=== PATIENT | female | born 1950 | race Caucasian/White ===

== ENCOUNTER → 2016-07-23 | Outpatient (CLI) | payer MEDICARE, OTHER ==
[2016-07-23 14:28] VITALS: BP 128/75; PULSE 75; TEMP 98.2; BMI 37.0
--- NOTE | 2016-07-23 15:08 | P.HPBAR ---
Bariatric H&P - History & Physicial H&P Date: 07/23/16 History & Physicial: Visit/CC: gastric band fill Patient initial contact: Initial weight: 117.934 kg Initial weight in pounds: 260.00 Height: 5 ft 5 in Initial BMI: 43.2 Last weight: Current weight: 100.924 kg Current weight in pounds: 222.50 Current BMI: 37.0 [place] body weight (based on NIH guidelines): 56.699 kg Excess body weight loss: 27.7% The patient is a 65 year-old F who presents for Bariatric Assessment. The patient is hungry and is requesting a fill of her LAP-BAND. Review of Systems Constitutional: Reports as per HPI Past Medical History Past Medical History: Diabetes Mellitus, Hyperlipidemia, Hypertension, Osteoarthritis (OA), Thyroid Disorder Additional Past Medical History / Comment(s): type 2 DM, hypothyroidism. History of Any Multi-Drug Resistant Organisms: None Reported Past Surgical History: Appendectomy, Bariatric Surgery, Orthopedic Surgery Additional Past Surgical History / Comment(s): lap band placed 2007 (here), Left knee "cleaned out" , bilateral carpal tunnel, Right rotator cuff, sinus surgery for chronic sinusitis Past Anesthesia/Blood Transfusion Reactions: No Reported Reaction Past Psychological History: Depression Smoking Status: Former smoker Past Alcohol Use History: Daily Additional Past Alcohol Use History / Comment(s): drinks "a little bit of wine every day". quit smoking in 1997 (smoked 1 PPD), SMOKED 25 YEARS. Past Drug Use History: None Reported - Past Family History Mother Family Medical History: Congestive Heart Failure (CHF), Diabetes Mellitus, Osteoarthritis (OA) Additional Family Medical History / Comment(s): at age 85, Father Family Medical History: Liver Disease Additional Family Medical History / Comment(s): cirrhosis of the liver and enlarged heart, at age 54 Brother(s) Family Medical History: Diabetes Mellitus Additional Family Medical History / Comment(s): juvenile dm Surgical - Exam Vital Signs Temp Pulse BP 98.2 F 75 128/75 07/23/16 14:25 07/23/16 14:25 07/23/16 14:25 - General well developed, no distress - Eyes PERRL - ENT normal pinna - Neck no masses - Respiratory normal expansion - Cardiovascular Rhythm: regular - Abdomen Abdomen: soft, non tender Bariatric Assessment & Plan Plan: The patient LAP-BAND was adjusted. She had 2 mL added to her LAP-BAND. She currently has 6 mL in her LAP-BAND. She will follow-up in one month for recheck. Bariatric Checklist Checklist: Plan: Checklist: EGD: 1. Hiatal hernia: 2. H. Pylori: HgbA1c: Vitamin D: Smoking: Former smoker Primary care physician referral: Psychiatry clearance: Cardiology clearance: Sleep study: Diet journal: VTE risk score: VTE risk level: Rehab needs at discharge:
== END | disposition home or self-care (01) ==
LOC: BARWHC3 13:18
PROVIDERS: ATTEND Surgery
DX: Z48.815 Encounter for surgical aftercare following surgery on the digestive system (principal); Z98.84 Bariatric surgery status; Z68.37 Body mass index [BMI] 37.0-37.9, adult; Z87.891 Personal history of nicotine dependence
CPT/HCPCS: 99212

== ENCOUNTER → 2016-07-30 | Outpatient (CLI) | payer MEDICARE, OTHER ==
[2016-07-30 13:20] VITALS: BP 143/68; PULSE 97; TEMP 98.7; BMI 35.9
--- NOTE | 2016-07-30 14:11 | P.HPBAR ---
Bariatric H&P - History & Physicial H&P Date: 07/30/16 History & Physicial: Visit/CC: lap band follow up Patient initial contact: Initial weight: 117.934 kg Initial weight in pounds: 260.00 Height: 5 ft 5 in Initial BMI: 43.2 Last weight: Current weight: 97.749 kg Current weight in pounds: 215.50 Current BMI: 35.9 [place] body weight (based on NIH guidelines): 56.699 kg Excess body weight loss: 32.9% The patient is a 65 year-old F who presents for Bariatric Assessment. The patient presents today for LAP-BAND follow-up. She currently has some dysphagia. And GERD. She is requesting fluid removed from the band. Review of Systems Constitutional: Reports as per HPI Past Medical History Past Medical History: Diabetes Mellitus, Hyperlipidemia, Hypertension, Osteoarthritis (OA), Thyroid Disorder Additional Past Medical History / Comment(s): type 2 DM, hypothyroidism. History of Any Multi-Drug Resistant Organisms: None Reported Past Surgical History: Appendectomy, Bariatric Surgery, Orthopedic Surgery Additional Past Surgical History / Comment(s): lap band placed 2007 (here), Left knee "cleaned out" , bilateral carpal tunnel, Right rotator cuff, sinus surgery for chronic sinusitis Past Anesthesia/Blood Transfusion Reactions: No Reported Reaction Past Psychological History: Depression Smoking Status: Former smoker Past Alcohol Use History: Daily Additional Past Alcohol Use History / Comment(s): drinks "a little bit of wine every day". quit smoking in 1997 (smoked 1 PPD), SMOKED 25 YEARS. Past Drug Use History: None Reported - Past Family History Mother Family Medical History: Congestive Heart Failure (CHF), Diabetes Mellitus, Osteoarthritis (OA) Additional Family Medical History / Comment(s): at age 85, Father Family Medical History: Liver Disease Additional Family Medical History / Comment(s): cirrhosis of the liver and enlarged heart, at age 54 Brother(s) Family Medical History: Diabetes Mellitus Additional Family Medical History / Comment(s): juvenile dm Surgical - Exam Vital Signs Temp Pulse BP 98.7 F 97 143/68 07/30/16 13:16 07/30/16 13:16 07/30/16 13:16 - General well developed, no distress - Eyes PERRL - ENT normal pinna - Neck no masses - Respiratory normal expansion - Cardiovascular Rhythm: regular - Abdomen Abdomen: soft, non tender Bariatric Assessment & Plan Plan: The patient had her LAP-BAND adjusted. 1 mL was removed from her LAP-BAND. She currently has 5 mL in the band. She'll follow-up in one month for recheck Bariatric Checklist Checklist: Plan: Checklist: EGD: 1. Hiatal hernia: 2. H. Pylori: HgbA1c: Vitamin D: Smoking: Former smoker Primary care physician referral: dr jauregui Psychiatry clearance: Cardiology clearance: Sleep study: Diet journal: VTE risk score: VTE risk level: Rehab needs at discharge:
== END | disposition home or self-care (01) ==
LOC: BARWHC3 12:11
PROVIDERS: ATTEND Surgery
DX: Z48.815 Encounter for surgical aftercare following surgery on the digestive system (principal); Z98.84 Bariatric surgery status; Z68.35 Body mass index [BMI] 35.0-35.9, adult; R13.10 Dysphagia, unspecified; K21.9 Gastro-esophageal reflux disease without esophagitis; Z87.891 Personal history of nicotine dependence
CPT/HCPCS: 99212

== ENCOUNTER → 2016-10-15 | Outpatient (CLI) | payer MEDICARE, OTHER ==
[2016-10-15 15:00] VITALS: BP 138/67; PULSE 78; RESP 16; TEMP 98.1; BMI 36.6
--- NOTE | 2016-10-15 16:27 | P.HPBAR ---
Bariatric H&P - History & Physicial H&P Date: 10/15/16 History & Physicial: Visit/CC: Patient initial contact: Initial weight: 117.934 kg Initial weight in pounds: 260.00 Height: 5 ft 5 in Initial BMI: 43.2 Last weight: Current weight: 100.017 kg Current weight in pounds: 220.00 Current BMI: 36.6 [place] body weight (based on NIH guidelines): 56.699 kg Excess body weight loss: 29.6% The patient is a 65 year-old F who presents for Bariatric Assessment. Patient presents today for lab band follow up. She states she is hungry and is requesting a fill. Past Medical History Past Medical History: Diabetes Mellitus, Hyperlipidemia, Hypertension, Osteoarthritis (OA), Thyroid Disorder Additional Past Medical History / Comment(s): type 2 DM, hypothyroidism. History of Any Multi-Drug Resistant Organisms: None Reported Past Surgical History: Appendectomy, Bariatric Surgery, Orthopedic Surgery Additional Past Surgical History / Comment(s): lap band placed 2007 (here), Left knee "cleaned out" , bilateral carpal tunnel, Right rotator cuff, sinus surgery for chronic sinusitis Past Anesthesia/Blood Transfusion Reactions: No Reported Reaction Past Psychological History: Depression Smoking Status: Former smoker Past Alcohol Use History: Daily Additional Past Alcohol Use History / Comment(s): drinks "a little bit of wine every day". quit smoking in 1997 (smoked 1 PPD), SMOKED 25 YEARS. Past Drug Use History: None Reported - Past Family History Mother Family Medical History: Congestive Heart Failure (CHF), Diabetes Mellitus, Osteoarthritis (OA) Additional Family Medical History / Comment(s): at age 85, Father Family Medical History: Liver Disease Additional Family Medical History / Comment(s): cirrhosis of the liver and enlarged heart, at age 54 Brother(s) Family Medical History: Diabetes Mellitus Additional Family Medical History / Comment(s): juvenile dm Surgical - Exam Vital Signs Temp Pulse Resp BP 98.1 F 78 16 138/67 10/15/16 14:58 10/15/16 14:58 10/15/16 14:58 10/15/16 14:58 - General well developed, no distress - Eyes PERRL - ENT normal pinna - Neck no masses - Respiratory normal expansion - Cardiovascular Rhythm: regular - Abdomen Abdomen: soft, non tender Bariatric Assessment & Plan Plan: The patient LAP-BAND was adjusted. She had 0.5 mL added to her band. She is able require ventricular. She'll follow-up in one month. Bariatric Checklist Checklist: Plan: Checklist: EGD: 1. Hiatal hernia: 2. H. Pylori: HgbA1c: Vitamin D: Smoking: Former smoker Primary care physician referral: dr jauregui Psychiatry clearance: Cardiology clearance: Sleep study: Diet journal: VTE risk score: VTE risk level: Rehab needs at discharge:
== END | disposition home or self-care (01) ==
LOC: BARWHC3 14:47
PROVIDERS: ATTEND Surgery
DX: Z48.815 Encounter for surgical aftercare following surgery on the digestive system (principal); Z98.84 Bariatric surgery status; Z87.891 Personal history of nicotine dependence
CPT/HCPCS: 99212